=== PATIENT | female | born 1965 | race Caucasian/White ===

== ENCOUNTER → 2018-04-26 | Outpatient (CLI) | payer BC ==
[~2018-04-26] MED LIST: CEFU250 PO; CEP500 PO; FAM20 PO; IBU600 PO; IBU800 PO; IBUP-56 PO; LOR5 PO; NO CURRENT MEDS; PHENA200 PO; TOBOD OD
--- NOTE | 2018-04-26 13:48 | RADIOLOGY IMAGING REPORT ---
FACILITY: [facility] [place] PATIENT NAME: ALLIE IBARRA : [id number] MR: [id number] V: [id number] EXAM DATE: [id number] ORDERING PHYSICIAN: MARIE DEVRIES TECHNOLOGIST: Gloria Rush PROCEDURE:BILATERAL DIGITAL SCREENING MAMMOGRAM WITH CAD ASSISTED INTERPRETATION & 3D TOMOSYNTHESIS COMPARISON:Prior mammograms dated 01/10/17, 11/09/15, 08/18/14, 09/16/13, 03/13/13, 08/04/11 INDICATIONS:SCREENING FINDINGS: A small amount of fibroglandular tissue is seen throughout the breasts. The parenchymal pattern has remained stable allowing for difference in mammographic technique & patient positioning. There is no evidence of malignant appearing mass, malignant appearing calcification or other secondary sign of malignancy in either breast. DIAGNOSTIC CATEGORY 1--NEGATIVE. RECOMMENDATIONS: ROUTINE MAMMOGRAM AND CLINICAL EVALUATION. IMPRESSION: BIRADS 1: Negative. No significant abnormality is seen. Dictated by: Jannet Escudero M.D. on 04/26/2018 at 8:55 Transcribed by: LEANDRA on 04/26/2018 at 13:23 Approved by: Jannet Escudero M.D. on 04/26/2018 at 13:48 [facility]
== END ==
LOC: MAMO 04:16
PROVIDERS: ATTEND Nurse Practitioner Psychiatric/Mental Health
DX: Z12.31 Encounter for screening mammogram for malignant neoplasm of breast (principal); Z80.3 Family history of malignant neoplasm of breast
CPT/HCPCS: 77063; 77067